=== PATIENT | male | born 1945 | race Caucasian/White ===

== ENCOUNTER 2018-11-23 09:33 | Inpatient (IN) | payer MEDICARE, BC ==
[~2018-11-23] VITALS: Ht 177.8 cm; Wt 104.0 kg
[2018-11-23] VITALS (14 sets, daily range): BP systolic 107–155; BP diastolic 55–80
[~2018-11-23 09:33] MED LIST: MAG-54 PO; RANI-366 PO; SUCR1ORA2 PO
[2018-11-23] MEDS ORDERED: normal saline 1000ml 1,000 ML IV ONE (09:45)
[2018-11-23] MEDS ORDERED: meperidine/PF 50mg/ml syringe IV ONE (10:35)
[2018-11-23 10:59] LABS: BASOPHILS % (AUTO) 0.3 % (0-1); EOSINOPHILS # (AUTO) 0.2 X10'3 (0-0.9); EOSINOPHILS % (AUTO) 2.5 % (0-6); HEMATOCRIT 45.8 % (42.0-52.0); HEMOGLOBIN 15.4 g/dl (14.0-17.9); LYMPHOCYTES # (AUTO) 1.2 X10'3 (1.1-4.8); LYMPHOCYTES % (AUTO) 13.4 % (21-51); MEAN CORPUSCULAR HEMOGLOBIN 30.1 PG (27.0-31.0); MEAN CORPUSCULAR HGB CONC 33.7 % (33.0-36.5); MEAN CORPUSCULAR VOLUME 89.3 FL (78-98); MEAN PLATELET VOLUME 6.6 FL (7.4-10.4); MONOCYTES # (AUTO) 0.4 X10'3 (0-0.9); NEUTROPHILS # (AUTO) 7.4 X10'3 (1.8-7.7); NEUTROPHILS % (AUTO) 79.8 % (42-75); PLATELET COUNT 247 X10'3 (140-440); RED BLOOD COUNT 5.13 X10'6 (4.70-6.10); RED CELL DISTRIBUTION WIDTH 14.1 % (11.5-14.5); WHITE BLOOD COUNT 9.3 X10'3 (4.5-11.0)
[2018-11-23 11:10] LABS: PROTHROMBIN TIME 10.1 SECONDS (9.0-12.0)
[2018-11-23 11:21] LABS: ALANINE AMINOTRANSFERASE 36 U/L (12-78); ALBUMIN 3.9 G/DL (3.4-5.0); ALBUMIN/GLOBULIN RATIO 1.1 (1.1-1.5); ALKALINE PHOSPHATASE 70 IU/L (46-116); ANION GAP 11 (8-16); ASPARTATE AMINO TRANSFERASE 23 U/L (10-37); BILIRUBIN,TOTAL 0.5 MG/DL (0.1-1.0); BLOOD UREA NITROGEN 17 MG/DL (7-18); BUN/CREATININE RATIO 17.7 (5.4-32.0); CALCIUM 8.7 MG/DL (8.5-10.1); CHLORIDE 102 MMOL/L (99-107); CREATININE 0.96 MG/DL (0.60-1.10); GLUCOSE 120 MG/DL (70-104); LIPASE 102 U/L (73-393); POTASSIUM 3.8 MMOL/L (3.5-5.1); SODIUM 138 MMOL/L (135-145); TOTAL CARBON DIOXIDE 25.2 MMOL/L (24-32); TOTAL PROTEIN 7.4 G/DL (6.4-8.2); eGFR 77 ML/MIN
[2018-11-23] MEDS ORDERED: morphine 4 MG/ML inj SYRINge IV ONE (11:25)
[2018-11-23] MEDS ORDERED: potassium Cl 40MEQ/NS 500ml 500 ML IV PRN ×2 (11:50)
[2018-11-23] MEDS ORDERED: magnesium 4gm in 100ml NS 100 ML IV PRN (11:50)
[2018-11-23] MEDS ORDERED: magnesium 2GM in 50ml NS 50 ML IV PRN (11:50)
[2018-11-23] MEDS ORDERED: morphine 4 MG/ML inj SYRINge IV PRN ×3 (11:50→18:50)
[2018-11-23] MEDS ORDERED: potassium Cl 20 mEq SR tablet PO PRN ×2 (11:50)
[2018-11-23] MEDS ORDERED: magnesium Cl slow-release 64mg tablet PO PRN (11:50)
[2018-11-23 12:06] LABS: CLARITY,URINE CLEAR (Clear); COLOR,URINE YELLOW (Yellow); GLUCOSE, URINE NEGATIVE (Neg); KETONES,URINE TRACE mg/dl (Neg); LEUKOCYTE ESTERASE ,URINE NEGATIVE (Neg); NITRITES, URINE NEGATIVE (Neg); OCCULT BLOOD,URINE TRACE-LYSED (Neg); PH,URINE 8.5 (4.8-8.0); PROTEIN,URINE NEGATIVE (Neg); UROBILINOGEN,URINE 0.2 E.U/dL (0.2-1.0)
[2018-11-23 12:08] LABS: UA COLLECTION TYPE CLN CATCH MIDSTREAM
[2018-11-23 12:26] LABS: MUCUS STRANDS FEW /LPF (Neg); SQUAMOUS EPITHELIAL CELL,UR FEW /LPF (FEW)
[2018-11-23 12:27] LABS: RBC,URINE 0-2 /HPF (0-2); WBC,URINE NONE SEEN /HPF (0-4)
[2018-11-23 12:28] LABS: BACTERIA,URINE NONE SEEN /HPF (Neg)
[2018-11-23] MEDS: normal saline 1000ml 1,000 ML IV SCH ×2 (12:30→20:35)
[2018-11-23] MEDS ORDERED: ASPI-611 PO (14:31)
[2018-11-23] MEDS ORDERED: PANT-47 PO (14:31)
[2018-11-23] MEDS ORDERED: CHOL100044 PO (14:31)
[2018-11-23] MEDS ORDERED: METO-395 PO (14:31)
[2018-11-23] MEDS ORDERED: CYAN-19 PO (14:31)
[2018-11-23] MEDS ORDERED: TADA5TAB2 PO (14:31)
[2018-11-23] MEDS ORDERED: AMLO5TAB4 PO (14:31)
[2018-11-23] MEDS ORDERED: TERA2CAP4 PO (14:31)
[2018-11-23] MEDS ORDERED: LOSA100T57 PO (14:31)
[2018-11-23] MEDS ORDERED: UBID100C45 PO (14:31)
[2018-11-23] MEDS ORDERED: EZET10TA14 PO (14:31)
--- NOTE | 2018-11-23 14:31 | NUR ---
PATIENTS MEDICATION LIST GIVEN TO PHARMACIST IN ER TO COMPLETE MED REC
--- NOTE | 2018-11-23 14:44 | NUR ---
REPORT TO RHEA MOSQUERAMANAGER E COMMERCE. PATIENT TO GO TO ROOM 350 B WITH ALL BELONGINGS VIA WC. DISCUSSED ALL LABS, VITALS AND PLAN OF CARE.
[2018-11-23] MEDS: ondansetron/PF 4mg/2ml inj IV PRN ×2 (14:51→21:02)
[2018-11-23] MEDS ORDERED: HYDROmorphone 1 mg/ml syringe IV PRN (14:55)
--- NOTE | 2018-11-23 14:57 | NUR ---
Patient in room ED 14. I have received report from RITCHIE WILKERSON and had the opportunity to ask questions and assume patient care.
[2018-11-23] MEDS ORDERED: BUPIVAcaine/PF 2.5mg/ml (0.25%) 10ml vial ONE (16:33)
[2018-11-23] MEDS ORDERED: LIDOcaine 1% 30ml preserv. free vial ONE (16:33)
--- NOTE | 2018-11-23 16:50 | NUR ---
PT TRANSFERRED TO OR
[2018-11-23] MEDS ORDERED: sevoflurane 250ml liquid IH ONE (18:09)
[2018-11-23] MEDS ORDERED: glycopyrrolate 0.2mg/ml inj ONE (18:09)
[2018-11-23] MEDS ORDERED: midazolam 2 mg/2 ml injection ONE (18:12)
[2018-11-23] MEDS ORDERED: fentaNYL /PF 50mcg/ml 5ml ampule ONE (18:12)
[2018-11-23] MEDS ORDERED: propofol inj 20 ML IV ONE (18:13)
--- NOTE | 2018-11-23 18:13 | NUR ---
Problems reprioritized. Patient report given, questions answered & plan of care reviewed with KIRSTIE WILKERSON.
[2018-11-23] MEDS ORDERED: rocuronium 10mg/ml inj IV ONE (18:16)
[2018-11-23] MEDS ORDERED: ringers solution, lacted 1,000 ML IV SCH (18:47)
[2018-11-23] MEDS ORDERED: meperidine/PF 25mg/ml syringe IV PRN ×3 (18:50)
[2018-11-23] MEDS ORDERED: ondansetron/PF 4mg/2ml inj IV PRN (18:50)
[2018-11-23] MEDS ORDERED: proCHLORperazine 10 MG/2 ml inj IV PRN (18:50)
[2018-11-23] MEDS ORDERED: neostigmine methylsulfate 1 MG/ML 10ml vial ONE (19:03)
--- NOTE | 2018-11-23 19:20 | NUR ---
Received from OR via BED, accompanied by Anesthesiologist JONAS and report given by Anesthesiolgist. PT DROWSY, OXYGENATING WELL ON 10 LPM O2 VIA MASK, NO RESP DISTRESS NOTED. PT DENIES NAUSEA, C/O 5/10 PAIN INCISIONALLY. NO REQUEST FOR PAIN MED AT THIS TIME. 4 ABD LAP SITES WITH [facility], CDI. SCDS ON, VSS.
[2018-11-23] MEDS ORDERED: HYDROcodone/acetaminophen 5mg/325mg tablet PO PRN (19:25)
[2018-11-23] MEDS ORDERED: HYDROcodone/acetaminophen 10/325mg tab PO PRN (19:25)
--- NOTE | 2018-11-23 20:20 | NUR ---
received report from Jesusita, will assess when patient arrives to floor. Will continue to monitor.
--- NOTE | 2018-11-23 20:20 | NUR ---
Report called to receiving nurse. Transferred via BED Belongings IN PT ROOM. B HEARING AIDES IN PT EARS. VSS. MILD PAIN, PT PREFERS NO PAIN MEDS. TOLERATING PO FLUIDS WELL. TRANSFERRED TO 3 SURG IN STABLE CONDITION. Special Issues communicated to receiving nurse.
[2018-11-23] MEDS: amLODIPine 5mg tablet PO SCH (21:07)
[2018-11-24] VITALS: BP 137/61
[2018-11-24 00:15] VITALS: BP 142/63
[2018-11-24] MEDS: ceFOXitin 1 GM ADDVANTAGE BAG 50 ML IV SCH ×2 (00:26→08:06)
[2018-11-24 04:51] VITALS: BP 128/63
[2018-11-24 04:59] LABS: BASOPHILS % (AUTO) 0.2 % (0-1); EOSINOPHILS # (AUTO) 0.1 X10'3 (0-0.9); EOSINOPHILS % (AUTO) 1.2 % (0-6); HEMATOCRIT 38.6 % (42.0-52.0); HEMOGLOBIN 13.1 g/dl (14.0-17.9); LYMPHOCYTES # (AUTO) 1.5 X10'3 (1.1-4.8); LYMPHOCYTES % (AUTO) 15.4 % (21-51); MEAN CORPUSCULAR HEMOGLOBIN 29.9 PG (27.0-31.0); MEAN PLATELET VOLUME 6.6 FL (7.4-10.4); MONOCYTES # (AUTO) 1.1 X10'3 (0-0.9); MONOCYTES % (AUTO) 11.4 % (2-12); NEUTROPHILS # (AUTO) 7.1 X10'3 (1.8-7.7); NEUTROPHILS % (AUTO) 71.8 % (42-75); PLATELET COUNT 239 X10'3 (140-440); RED BLOOD COUNT 4.38 X10'6 (4.70-6.10); WHITE BLOOD COUNT 9.9 X10'3 (4.5-11.0)
[2018-11-24 05:14] LABS: ANION GAP 8 (8-16); BLOOD UREA NITROGEN 14 MG/DL (7-18); BUN/CREATININE RATIO 12.7 (5.4-32.0); CALCIUM 7.6 MG/DL (8.5-10.1); CHLORIDE 106 MMOL/L (99-107); GLUCOSE 100 MG/DL (70-104); MAGNESIUM 1.8 MG/DL (1.5-2.4); POTASSIUM 3.9 MMOL/L (3.5-5.1); SODIUM 139 MMOL/L (135-145); TOTAL CARBON DIOXIDE 25.1 MMOL/L (24-32); eGFR 66 ML/MIN
[2018-11-24] MEDS: normal saline 1000ml 1,000 ML IV SCH (06:03)
--- NOTE | 2018-11-24 06:09 | NUR ---
Patient in room CAS 350. I have received report from susan pa and had the opportunity to ask questions and assume patient care.
--- NOTE | 2018-11-24 06:43 | NUR ---
Problems reprioritized. Patient report given, questions answered & plan of care reviewed with Dot WILKERSON. Patient resting eyes closed respirations even.
[2018-11-24 07:00] VITALS: BP 128/53
[2018-11-24] MEDS ORDERED: pantoprazole 40mg Tablet.DR PO SCH (08:00)
[2018-11-24] MEDS ORDERED: K and/or MAG REPLACEMENT MC SCH (08:00)
[2018-11-24] MEDS ORDERED: metoprolol succinate 25mg (24-HOUR) SR. Tablet PO SCH (08:00)
[2018-11-24] MEDS ORDERED: ezetimibe 10mg tablet PO SCH (08:00)
[2018-11-24] MEDS ORDERED: famotidine/PF 10 mg/ml inj IV SCH (08:00)
[2018-11-24] MEDS: amLODIPine 5mg tablet PO SCH (08:06)
[2018-11-24 11:12] VITALS: BP 146/63
--- NOTE | 2018-11-24 13:53 | NUR ---
PT DISCHARGED IN STABLE CONDITION. LEFT FACILITY IN PRIVATE VEHICLE WITH . IV DC [facility]ULA INTACT. ALL BELONGINGS IN HAND, INCLUDING RX DELIVERED BY [facility]. FOLLOW UP INSTRUCTIONS GIVEN, ALL QUESTIONS ANSWERED. Addendum: 11/24/18 at 1358 by Kate Mullen RN Amended: Links added. Addendum: 11/24/18 at 1406 by Kaet Mullen RN NO MEDS WERE DELIVERED TO PT THROUGH [facility], NO NEW MEDS WERE PRESCRIBED
== END 2018-11-24 13:50 | disposition home or self-care (01) | DRG 418 ==
LOC: ER 09:33 → ED HOLD 11:50 → SUR 3N 15:06
PROVIDERS: ADMIT Internal Medicine; ATTEND Internal Medicine
PROC: 0FT44ZZ Resection of Gallbladder, Percutaneous Endoscopic Approach (ICD-10-PCS; principal; 2018-11-23 18:09)
DX: K80.00 Calculus of gallbladder with acute cholecystitis without obstruction (principal); N13.8 Other obstructive and reflux uropathy; K21.9 Gastro-esophageal reflux disease without esophagitis; I10 Essential (primary) hypertension; E78.5 Hyperlipidemia, unspecified; H91.90 Unspecified hearing loss, unspecified ear; N40.1 Benign prostatic hyperplasia with lower urinary tract symptoms; K82.A1 Gangrene of gallbladder in cholecystitis; Z79.899 Other long term (current) drug therapy; Z90.49 Acquired absence of other specified parts of digestive tract
CPT/HCPCS: 36415; 71045; 76700; 80048; 80053; 81001; 83690; 83735; 85025; 85610; 87070; 88304; 96374; 96375; 99285; A7000; G0378; J0694; J1170; J2175; J2250; J2270; J2405; J2704; J2710; J3010; J3490; J7030; J7120

== ENCOUNTER 2019-07-28 01:43 | Emergency (ER) | payer MEDICARE, BC ==
[~2019-07-28] VITALS: Ht 180.3 cm; Wt 95.5 kg
[~2019-07-28 01:43] MED LIST changes: +AMLO5TAB4 PO; +ASPI-611 PO; +CHOL100044 PO; +CYAN-51 PO; +EZET10TA21 PO; +LOSA100T57 PO; -MAG-54 PO; +METO-395 PO; +PANT-47 PO; -RANI-366 PO; -SUCR1ORA2 PO; +TADA5TAB2 PO; +TERA2CAP4 PO; +UBID100C45 PO
[2019-07-28 02:12] VITALS: BP 110/76
[2019-07-28] MEDS ORDERED: TETRACAINE 0.5% 4 ML OPHTHALMIC DROPS EACHEYE ONE (02:35)
[2019-07-28] MEDS ORDERED: proparacaine 0.5% ophthalmic drops 15ml EACHEYE ONE (02:35)
[2019-07-28] MEDS ORDERED: ciprofloxacin 0.3% 2.5ml ophthalmic solution RIGHTEYE ONE (03:45)
[2019-07-28] MEDS ORDERED: naproxen 500mg tablet PO ONE (03:45)
[2019-07-28] MEDS ORDERED: diazepam 5mg tablet PO ONE ×2 (03:45)
[2019-07-28] MEDS ORDERED: CIPR2.5D18 RIGHTEYE (03:53)
[2019-07-28] MEDS ORDERED: DIAZ10TA PO (03:53)
== END 2019-07-28 04:35 | disposition home or self-care (01) ==
LOC: ER 01:44
DX: T15.01XA Foreign body in cornea, right eye, initial encounter (principal); I10 Essential (primary) hypertension; K21.9 Gastro-esophageal reflux disease without esophagitis; Z90.49 Acquired absence of other specified parts of digestive tract; Z87.891 Personal history of nicotine dependence; Z79.82 Long term (current) use of aspirin; Z79.2 Long term (current) use of antibiotics; Z79.899 Other long term (current) drug therapy; X58.XXXA Exposure to other specified factors, initial encounter; Y93.89 Activity, other specified; Y92.89 Other specified places as the place of occurrence of the external cause; Y99.8 Other external cause status
CPT/HCPCS: 65220; 99284

== ENCOUNTER 2019-07-28 05:53 | Emergency (ER) | payer MEDICARE, BC ==
[~2019-07-28] VITALS: Ht 180.3 cm; Wt 95.5 kg
[~2019-07-28 05:53] MED LIST changes: +CIPR2.5D18 RIGHTEYE; +DIAZ10TA PO
[2019-07-28 06:07] VITALS: BP 159/72
--- NOTE | 2019-07-28 06:16 | NUR ---
PATIENT ON BED AWAKE,SPOUSE AT BEDSIDE.
[2019-07-28] MEDS ORDERED: proparacaine 0.5% ophthalmic drops 15ml EACHEYE ONE (06:30)
--- NOTE | 2019-07-28 06:36 | NUR ---
DR. TOVAR AT BEDSIDE.
== END 2019-07-28 07:06 | disposition home or self-care (01) ==
LOC: ER 05:53
DX: S05.01XA Injury of conjunctiva and corneal abrasion without foreign body, right eye, initial encounter (principal); I10 Essential (primary) hypertension; K21.9 Gastro-esophageal reflux disease without esophagitis; Z79.82 Long term (current) use of aspirin; Z79.899 Other long term (current) drug therapy; Z90.49 Acquired absence of other specified parts of digestive tract; X58.XXXA Exposure to other specified factors, initial encounter; Y93.89 Activity, other specified; Y92.89 Other specified places as the place of occurrence of the external cause; Y99.8 Other external cause status
CPT/HCPCS: 99282